=== PATIENT | female | born 1955 | race African-American/Black ===

== ENCOUNTER → 2022-06-06 | Outpatient (CLI) | payer MEDICARE, MEDICAID | LOC: MHCPAIN 12:37 | DX: M48.062 Spinal stenosis, lumbar region with neurogenic claudication (principal); M17.0 Bilateral primary osteoarthritis of knee; M70.61 Trochanteric bursitis, right hip; M70.62 Trochanteric bursitis, left hip | CPT/HCPCS: G0463 ==

== ENCOUNTER → 2022-06-06 | Outpatient (CLI) | payer MEDICARE, MEDICAID | LOC: COL.RAD 14:30 | DX: M48.062 Spinal stenosis, lumbar region with neurogenic claudication (principal); M89.9 Disorder of bone, unspecified; M17.0 Bilateral primary osteoarthritis of knee; M47.817 Spondylosis without myelopathy or radiculopathy, lumbosacral region; M51.36 Other intervertebral disc degeneration, lumbar region; M16.0 Bilateral primary osteoarthritis of hip ==

== ENCOUNTER → 2022-06-20 | Outpatient (CLI) | payer MEDICARE, MEDICAID | LOC: MHCPAIN 10:55 | DX: M70.62 Trochanteric bursitis, left hip (principal); M25.552 Pain in left hip; M70.61 Trochanteric bursitis, right hip; M25.551 Pain in right hip | CPT/HCPCS: J3301 ==